=== PATIENT | female | born 1945 | race Caucasian/White ===

== ENCOUNTER 2023-09-26 07:31 | Day surgery (SDC) | payer MEDICARE, OTHER ==
[~2023-09-26 07:31] MED LIST: Sodium Chloride 0.9% 10 ML Syringe FLUSH PRN
[2023-09-26] MEDS ORDERED: Midazolam 1 MG/ML 2 ML SDV IV ONE (07:32)
[2023-09-26] MEDS ORDERED: fentaNYL 100 MCG/2 ML SDV IV ONE (07:32)
[2023-09-26] MEDS: Lactated Ringers 1,000 ML IV PRN (08:20)
[2023-09-26] MEDS: acetaZOLAMIDE 500 MG Cap.ER PO ONE (10:08)
== END 2023-09-26 10:35 | disposition home or self-care (01) ==
LOC: FB.SDS 07:31
PROVIDERS: ATTEND Ophthalmology
DX: H26.9 Unspecified cataract (principal); K21.9 Gastro-esophageal reflux disease without esophagitis; G31.84 Mild cognitive impairment of uncertain or unknown etiology; E66.9 Obesity, unspecified; Z68.30 Body mass index [BMI] 30.0-30.9, adult; E78.5 Hyperlipidemia, unspecified; N32.81 Overactive bladder; M81.0 Age-related osteoporosis without current pathological fracture; Z77.22 Contact with and (suspected) exposure to environmental tobacco smoke (acute) (chronic); Z79.899 Other long term (current) drug therapy; Z79.82 Long term (current) use of aspirin
CPT/HCPCS: 66984; A9270; J2250; J3010; J7120; V2632; 00142; 99100

== ENCOUNTER 2023-10-10 08:19 | Day surgery (SDC) | payer MEDICARE, OTHER ==
[2023-10-10] MEDS ORDERED: Midazolam 1 MG/ML 2 ML SDV IV ONE (08:20)
[2023-10-10] MEDS ORDERED: fentaNYL 100 MCG/2 ML SDV IV ONE (08:20)
[2023-10-10] MEDS ORDERED: Sodium Chloride 0.9% 10 ML Syringe FLUSH PRN (08:30)
[2023-10-10] MEDS: Lactated Ringers 1,000 ML IV PRN (09:00)
[2023-10-10] MEDS: acetaZOLAMIDE 500 MG Cap.ER PO ONE (10:01)
== END 2023-10-10 10:47 | disposition home or self-care (01) ==
LOC: FB.SDS 08:19
PROVIDERS: ATTEND Ophthalmology
DX: H26.9 Unspecified cataract (principal); K21.9 Gastro-esophageal reflux disease without esophagitis; E78.5 Hyperlipidemia, unspecified; E66.9 Obesity, unspecified; M81.0 Age-related osteoporosis without current pathological fracture; Z79.899 Other long term (current) drug therapy; Z68.31 Body mass index [BMI] 31.0-31.9, adult
CPT/HCPCS: 00142; 99100; A9270-GY; J2250; J3010; J7120; V2632

== ENCOUNTER 2023-12-27 07:55 | Day surgery (SDC) | payer MEDICARE, OTHER ==
[2023-12-27] MEDS ORDERED: Propofol 200 MG/20 ML SDV IV ONE (07:56)
[2023-12-27] MEDS ORDERED: Lidocaine 2% 100 MG/5 ML Syringe IVPUSH ONE (07:56)
[2023-12-27] MEDS ORDERED: Sodium Chloride 0.9% 10 ML Syringe FLUSH PRN (08:00)
[2023-12-27] MEDS: Lactated Ringers 1,000 ML IV SCH (08:45)
== END 2023-12-27 10:40 | disposition home or self-care (01) ==
LOC: FB.SDS 07:55
PROVIDERS: ATTEND Surgery
DX: Z12.11 Encounter for screening for malignant neoplasm of colon (principal); D12.6 Benign neoplasm of colon, unspecified; K21.9 Gastro-esophageal reflux disease without esophagitis; E78.5 Hyperlipidemia, unspecified; E66.9 Obesity, unspecified; Z79.899 Other long term (current) drug therapy
CPT/HCPCS: 00811; 45385; 88305; 99100; J2704; J7120